=== PATIENT | male | born 1955 ===

== ENCOUNTER → 2019-12-01 | Outpatient (CLI) | payer OTHER | END | disposition home or self-care (01) | LOC: LAB SHORT 08:55 → LAB SRC 08:55 | DX: L60.3 Nail dystrophy (principal) | CPT/HCPCS: 87102; 87106; 87210 ==

== ENCOUNTER 2025-03-16 13:22 | Emergency (ER) | payer OTHER ==
[~2025-03-16] VITALS: Ht 170.2 cm; Wt 74.8 kg
[2025-03-16 13:26] VITALS: BP 123/84
== END 2025-03-16 15:17 | disposition home or self-care (01) ==
LOC: ER 13:22
DX: S51.812A Laceration without foreign body of left forearm, initial encounter (principal); I10 Essential (primary) hypertension; W26.9XXA Contact with unspecified sharp object(s), initial encounter
CPT/HCPCS: 13121; 90471; 90715; 99282-25